=== PATIENT | female | born 1995 | race Caucasian/White ===

== ENCOUNTER 2021-10-16 08:58 | Emergency (ER) | payer OTHER, SELFPAY ==
[~2021-10-16] VITALS: Ht 149.9 cm; Wt 46.7 kg
[2021-10-16 09:06] VITALS: BP_SYST 145
[2021-10-16] MEDS ORDERED: DIPHENHYDRAMINE INJ 50 MG/ML VIAL IVP ONE ×2 (09:45→11:45)
[2021-10-16] MEDS ORDERED: MORPHINE 4 MG INJ. 4 MG/ML VIAL IVP ONE ×2 (09:45→11:45)
[2021-10-16] MEDS ORDERED: ONDANSETRON HCL 4 MG/2 ML VIAL IVP ONE (09:45)
[2021-10-16] MEDS ORDERED: NACL 0.9% 1,000 ML IV ONE (09:45)
[2021-10-16 09:55] LABS: BASOPHILS % (AUTO) 0.3 % (0.0-2.0); HEMOGLOBIN 13.2 g/dL (12.0-16.0); LYMPHOCYTES # (AUTO) 0.5 K/uL (1.0-5.5); LYMPHOCYTES % (AUTO) 6.7 % (20.5-51.5); MEAN CORPUSCULAR HEMOGLOBIN 29 pg (27-31); MEAN CORPUSCULAR HGB CONC 34 % (32-36); MEAN CORPUSCULAR VOLUME 85 fL (79.0-98.0); MONOCYTES # (AUTO) 0.3 K/uL (0.0-1.0); MONOCYTES % (AUTO) 3.4 % (1.7-9.3); NEUTROPHILS % (AUTO) 89.6 % (40.0-70.0); PLATELET COUNT (AUTO) 291 K/uL (130-430); RED BLOOD CELL COUNT(AUTO) 4.59 MIL/uL (4.2-6.2); RED CELL DISTRIBUTION WIDTH 15.4 % (9.0-15.0); WHITE BLOOD COUNT (AUTO) 7.8 K/uL (4.8-10.8)
[2021-10-16 09:57] LABS: BILIRUBIN,URINE 1+ (NEGATIVE); BLOOD, URINE NEGATIVE (NEGATIVE); CLARITY/URINE CLEAR (CLEAR); COLOR,URINE YELLOW (YELLOW); GLUCOSE,URINE NEGATIVE (NEGATIVE); KETONES,URINE 3+ (NEGATIVE); LEUKOCYTE ESTERASE ,URINE TRACE (NEGATIVE); NITRITE, URINE NEGATIVE (NEGATIVE); PH,URINE 6.5 (5.0-8.0); PROTEIN URINE 1+ (NEGATIVE)
[2021-10-16 10:11] LABS: RBC,URINE 0-3 /HPF (0-3)
[2021-10-16 10:12] LABS: BACTERIA,URINE FEW /HPF (None Seen); MUCUS,URINE 2+ /LPF (None Seen)
[2021-10-16 10:15] LABS: CALCIUM 9.7 mg/dL (8.4-11.0); CREATININE 0.56 mg/dL (0.55-1.30); POTASSIUM 3.5 mmol/L (3.5-5.1)
[2021-10-16 10:21] LABS: ALBUMIN 5.2 g/dL (3.4-4.8); TOTAL BILIRUBIN 0.9 mg/dL (0.0-1.0)
[2021-10-16 14:50] VITALS: BP_SYST 102
[2021-10-17] MEDS ORDERED: ONDA-8 TL (13:14)
[2021-10-17] MEDS ORDERED: PRO40 PO (13:14)
== END 2021-10-16 14:50 | disposition home or self-care (01) ==
LOC: SED 08:58 → EDBD 08:58 → SED 14:50
DX: N94.6 Dysmenorrhea, unspecified (principal); R10.2 Pelvic and perineal pain; R07.89 Other chest pain
CPT/HCPCS: 36415; 71045; 74177; 76376; 76856; 80053; 81000; 81025; 84484; 85025; 87086; 93005; 96374; 96375; 96376; 99285; J1200; J2270; J2405; Q9967

== ENCOUNTER 2021-10-17 07:33 | Emergency (ER) | payer OTHER, SELFPAY ==
[~2021-10-17] VITALS: Ht 149.9 cm; Wt 49.9 kg
[2021-10-17 08:00] VITALS: BP_SYST 130
--- NOTE | 2021-10-17 08:10 | NUR ---
Placed in room 8 . Placed on computer operator, blood pressure machine and pulse oximeter. To gown for exam. Side rails up. Report given to LISETTE GUERRA.
--- NOTE | 2021-10-17 08:22 | NUR ---
PT COMES TO ER WITH C/O SEVERE NAUSEA/VOMITING, WAS SEEN YESTERDAY-RECEIVED MORPHINE AND ZOFRAN WITH RELIEF. PER NOTES, PT HAD CT WITH CONTRAST WITH NO FINDINGS. WAITING FOR ER MD KIRBY.
--- NOTE | 2021-10-17 09:01 | NUR ---
DR DYKES INFORMED ABOUT PT'S CURRENT STATUS. PT CRYING AND FORCEFULLY WRETCHING, CLEAR FLUID IN VOMIT BAG NOTICED-SMALL AMOUNT LESS THAN 100CC. WAIITNG FOR ER MD KIRBY.
--- NOTE | 2021-10-17 09:46 | NUR ---
dr pérez in room for exam.
[2021-10-17] MEDS ORDERED: LORazepam 2 MG/ML VIAL IVP ONE ×2 (10:00→11:45)
[2021-10-17] MEDS ORDERED: DIPHENHYDRAMINE INJ 50 MG/ML VIAL IVP ONE ×2 (10:00→11:45)
[2021-10-17] MEDS ORDERED: METOCLOPRAMIDE HCL 10 MG/2 ML VIAL IVP ONE (10:00)
[2021-10-17] MEDS ORDERED: NACL 0.9% 1,000 ML IV ONE (10:00)
[2021-10-17 10:09] LABS: BASOPHILS % (AUTO) 0.5 % (0.0-2.0); EOSINOPHILS % (AUTO) 0.1 % (0.0-4.0); HEMATOCRIT 38.6 % (36-48); HEMOGLOBIN 12.9 g/dL (12.0-16.0); LYMPHOCYTES # (AUTO) 0.7 K/uL (1.0-5.5); LYMPHOCYTES % (AUTO) 10.6 % (20.5-51.5); MEAN CORPUSCULAR HEMOGLOBIN 28 pg (27-31); MEAN CORPUSCULAR HGB CONC 33 % (32-36); MEAN CORPUSCULAR VOLUME 85 fL (79.0-98.0); MONOCYTES # (AUTO) 0.2 K/uL (0.0-1.0); MONOCYTES % (AUTO) 3.6 % (1.7-9.3); NEUTROPHILS # (AUTO) 5.6 K/uL (1.8-7.7); NEUTROPHILS % (AUTO) 85.2 % (40.0-70.0); PLATELET COUNT (AUTO) 264 K/uL (130-430); RED BLOOD CELL COUNT(AUTO) 4.56 MIL/uL (4.2-6.2); RED CELL DISTRIBUTION WIDTH 15.2 % (9.0-15.0); WHITE BLOOD COUNT (AUTO) 6.6 K/uL (4.8-10.8)
--- NOTE | 2021-10-17 10:15 | NUR ---
PT HAD A PERIOD OF DYSTONIA AND EPS AFTER RECEIVING REGLAN IVP, DR DYKES INFORMED, OXYGEN APPLIED, ORDERS RECEIVED.
--- NOTE | 2021-10-17 10:20 | NUR ---
PT MOVED TO [facility]- MEDICATED ORDERED.
[2021-10-17 10:25] LABS: CALCIUM 9.3 mg/dL (8.4-11.0); CREATININE 0.5 mg/dL (0.55-1.30); POTASSIUM 3.3 mmol/L (3.5-5.1)
[2021-10-17] MEDS ORDERED: BENZTROPINE MESYLATE 2 MG/ 2 ML AMP IVP ONE (10:30)
[2021-10-17 10:31] LABS: ALBUMIN 5.1 g/dL (3.4-4.8); TOTAL BILIRUBIN 1.2 mg/dL (0.0-1.0)
--- NOTE | 2021-10-17 11:13 | NUR ---
PT NOW REPORTS CHEST DISCOMFORT, DR DYKES AT BEDSIDE, ORDERS RECEIVED.
[2021-10-17] MEDS ORDERED: MAG-AL HYDROX/SIMETH 30 ML UDC PO ONE (11:15)
[2021-10-17] MEDS ORDERED: fentaNYL CITRATE/PF 100 MCG/2 ML AMP IVP ONE (11:45)
--- NOTE | 2021-10-17 12:07 | NUR ---
PT CRYING AND MOANING WITH PAIN AND NAUSEA, DR DYKES INFORMED. NEW ORDERS RECEIEVED, MEDS GIVEN ORDERED
[2021-10-17 12:21] LABS: BILIRUBIN,URINE NEGATIVE (NEGATIVE); BLOOD, URINE NEGATIVE (NEGATIVE); CLARITY/URINE SL CLOUDY (CLEAR); COLOR,URINE YELLOW (YELLOW); GLUCOSE,URINE NEGATIVE (NEGATIVE); KETONES,URINE 3+ (NEGATIVE); LEUKOCYTE ESTERASE ,URINE TRACE (NEGATIVE); NITRITE, URINE NEGATIVE (NEGATIVE); PROTEIN URINE NEGATIVE (NEGATIVE)
[2021-10-17 12:35] LABS: BACTERIA,URINE FEW /HPF (None Seen); MUCUS,URINE 3+ /LPF (None Seen); RBC,URINE 0-3 /HPF (0-3)
[2021-10-17] MEDS ORDERED: MAG HYDROX/AL HYDROX/SIMETH 30 ML, DICYCLOMINE HCL 20 MG, LIDOCAINE VISCOUS 2% 15ML (PO... PO ONE ×3 (12:45)
[2021-10-17] MEDS ORDERED: PRO40 PO (13:14)
[2021-10-17] MEDS ORDERED: ONDA-8 TL (13:14)
--- NOTE | 2021-10-17 13:21 | NUR ---
Patient given written and verbal discharge instructions and verbalizes understanding. ER MD discussed with patient the results and treatment provided. Patient in stable condition. ID arm band removed. IV catheter removed intact and dressing applied, no active bleeding. Rx of NORCO, ZOFRAN, PROTONIX given. Patient educated on pain management and to follow up with PMD. Opportunity for questions provided and answered. Medication side effect fact sheet provided.
[2021-10-17 13:26] VITALS: BP_SYST 112
== END 2021-10-17 13:21 | disposition home or self-care (01) ==
LOC: SED 07:33
DX: N94.6 Dysmenorrhea, unspecified (principal); F41.9 Anxiety disorder, unspecified; Z88.8 Allergy status to other drugs, medicaments and biological substances; Z88.6 Allergy status to analgesic agent
CPT/HCPCS: 36415; 80053; 81000; 83690; 85025; 87086; 96361; 96374; 96375; 96376; 99284; J0515; J1200; J2001; J2060; J2765; J3010; J7030